=== PATIENT | female | born 1975 | race Caucasian/White ===

== ENCOUNTER 2020-01-09 07:34 | Emergency (ER) | payer BC, SELFPAY ==
[2020-01-09 07:36] VITALS: BP 113/112; PULSE 79; RESP 12; TEMP 37; O2SAT 97; BMI 38.7
--- NOTE | 2020-01-09 07:48 | HMH.EDMCLR ---
ED Disposition Clinical Impression: Hypertension Disposition: Home, Self-Care Condition on Discharge: Good Additional Instructions: Take meds as prescribed. Return if new symptoms. Referrals: Lb Bauer [Primary Care Provider] - - Critical Care Critical Care Time: No Attestation: On 01/09/20, the high probability of a clinically significant, sudden or life threatening deterioration of the following system(s) required my full and direct attention, intervention and personal management. The time I documented below is in addition to time spent performing reported procedures but includes the following listed in this critical care notation. Medical Decision Making - Medical Records Medical records reviewed: Yes: I reviewed the patient's medical records. - Eliud Inquiry Pt receiving controlled substance: No Vital Signs: 01/09/20 07:36 Temperature 98.6 F Temperature Source Oral Pulse Rate [Left Radial] 79 Respiratory Rate 12 Blood Pressure [Right Arm] 113/112 H Blood Pressure Mean [Right Arm] 112 Blood Pressure Source [Right Arm] Automatic Cuff Blood Pressure Position [Right Arm] Sitting 02 Sat by Pulse Oximetry 97 Oxygen Delivery Method Room Air Medical Decision Narrative: Patient presents with asymptomatic hypertension. Multiple readings in the emergency department around 150/70 mmHg. No diastolic blood pressure reading greater than 120 and again patient is asymptomatic. At this time, I did crisis counselor patient on the importance of keeping a blood pressure log and taking her valsartan as prescribed. My suspicion for any endorgan dysfunction based on patient's blood pressure reading and lack of symptoms is rather low so no indication for work-up here in the ER. Patient agrees. She is relieved that her blood pressure is better than when compared to yesterday. At this time, I did instruct her to immediately return if any chest pain, shortness of breath, other concerns. Otherwise she will follow-up with her primary care doctor for further management of chronic hypertension. Assessment: Asymptomatic hypertension Disposition: Home with follow-up Medical Clearance HPI - General Stated complaint: bp high CC: high blood pressure Time Seen by Provider: 01/09/20 07:35 Mode of Arrival: Ambulatory - History of Present Illness HPI Narrative: Patient 44-year-old female on valsartan for high blood pressure presenting due to blood pressure complaint. Patient states yesterday she noticed her blood pressure was high about 170/100 mmHg. She denies specifically chest pain, shortness of breath, nausea/vomiting, changes in urination, headache. At one point she stated that her cheeks felt flushed but denies other symptoms. She has been taking her valsartan as prescribed. No other symptoms to report. Home medications: Home Medications Medication Instructions Recorded Confirmed Loratadine [Claritin 10mg 10 mg PO DAILY 04/25/19 04/25/19 Tablet] Valsartan [Valsartan 80mg 325 mg PO DAILY 04/25/19 04/25/19 Tablets] Previous Rx's Medication Instructions Recorded Albuterol Sulfate [Albuterol HFA 1 - 2 puffs IH Q4-6H PRN #1 inh 04/25/19 Inhaler] Azithromycin [Z-Eriberto 250mg Tab*] 250 mg PO UD DOSE PK #6 tab 04/25/19 Oseltamivir Phosphate [Tamiflu 75 mg PO BID #10 cap 04/25/19 75mg Capsule] methylPREDNISolone [Medrol] 4 mg PO DIRECTED 6 Days #21 04/25/19 tab.ds.pk Allergies/Adverse reactions: Allergies Allergy/AdvReac Type Severity Reaction Status Date / Time No Known Allergies Allergy Verified 07/22/18 14:02 [facility] History - Hepatitis A Screen Attestation statement:: This patient has been screened for Hepatitis A risk factors. Medical History: Denies:: Cancer, Diabetes Mellitus Type 1, Diabetes Mellitus Type 2, MRSA Other Surgeries: Yes: Cholecystectomy, , Other Amputation: No - Social History Smoking Status: Never smoker Alcohol Intake: never Al
[2020-01-09 08:06] VITALS: BP 137/85; PULSE 70; RESP 19; TEMP 37
== END 2020-01-09 08:16 | disposition home or self-care (01) ==
PROVIDERS: Emergency Provider Emergency Medicine; PCP Pediatrics
DX: I16.0 Hypertensive urgency; Z79.899 Other long term (current) drug therapy; H53.8 Other visual disturbances; R51 Headache; Z90.79 Acquired absence of other genital organ(s)
CPT/HCPCS: 99281

== ENCOUNTER 2020-12-27 09:57 | Emergency (ER) | payer BC, SELFPAY ==
[2020-12-27 09:57] VITALS: BP 149/92; PULSE 89; RESP 14; TEMP 37.1; O2SAT 99; BMI 33.7
--- NOTE | 2020-12-27 10:51 | HMH.EDUTC ---
[facility] – [place] Disposition Clinical Impression: Strep throat Disposition: Home, Self-Care Condition on Discharge: Good Instructions: DI for Pharyngitis/Tonsillopharyngitis -- Adult, Preventing the Spread of Coronavirus Discharge Instructions Additional Instructions: Drink plenty of fluids. Take tylenol or ibuprofen for pain or fever. Take the medications as directed. Follow up with your regular doctor. GO TO THE ER FOR ANY WORSENING SYMPTOMS Throw your tooth brush away and get a new one. Quarantine until you know the results of your covid-19 test. If it is positive, the health department should call you and give you further instructions about your length of Quarantine and other thing. Prescriptions: Amoxicillin [Amoxicillin 500mg Tab] 500 mg PO TID 10 Days #30 tab Transmission Status: Received by [facility] #[id number] predniSONE [Deltasone 10mg tablet] 10 mg PO BID 3 Days #6 tab Transmission Status: Received by [facility] #[id number] Fluconazole [Diflucan 150mg tab] 150 mg PO ONCE #1 tab Transmission Status: Received by [facility] #[id number] Referrals: Lb Bauer [Primary Care Provider] - Time of Disposition: 10:54 Medical Decision Making - Medical Records Medical records reviewed: No: I reviewed the patient's medical records. - Eliud Inquiry Pt receiving controlled substance: No Vital Signs: 12/27/20 09:57 12/27/20 10:57 Temperature 98.7 F 98.7 F Temperature Source Oral Oral Pulse Rate 89 Pulse Rate [Right] 89 Respiratory Rate 14 14 Blood Pressure 149/92 H Blood Pressure [Right Arm] 149/92 H Blood Pressure Mean [Right Arm] 111 02 Sat by Pulse Oximetry 99 - Lab Data Lab results reviewed: Yes: I reviewed the patient's lab results. [facility] [place] HPI - General Stated complaint: sore throat Time Seen by Provider: 12/27/20 10:51 Description of Symptoms (Recalled from Triage Doc. by RN): pt c/o sore throat and request covid test HEENT Symptoms (Recalled from RN notes): Yes Resp Symptoms (Recalled from RN notes): No Skin Symptoms (Recalled from RN notes): No MS Symptoms (Recalled from RN notes): No Functional Status (Recalled from RN notes): na - History of Present Illness Provider Complaint: She c/o sore throat and feeling kind of bad for the past 2 days. She has a history of getting strep throat every so often. She states that she feels like she has strep throat now. She has been vaccinated agaist covid. She denies any known covid exposure. - Related Data Home Medications Medication Instructions Recorded Confirmed Loratadine [Claritin 10mg 10 mg PO DAILY 04/25/19 04/25/19 Tablet] Valsartan [Valsartan 80mg 325 mg PO DAILY 04/25/19 04/25/19 Tablets] Previous Rx's Medication Instructions Recorded Albuterol Sulfate [Albuterol HFA 1 - 2 puffs IH Q4-6H PRN #1 inh 04/25/19 Inhaler] Azithromycin [Z-Eriberto 250mg Tab*] 250 mg PO UD DOSE PK #6 tab 04/25/19 Oseltamivir Phosphate [Tamiflu 75 mg PO BID #10 cap 04/25/19 75mg Capsule] methylPREDNISolone [Medrol] 4 mg PO DIRECTED 6 Days #21 04/25/19 tab.ds.pk Amoxicillin [Amoxicillin 500mg Tab] 500 mg PO TID 10 Days #30 tab 12/27/20 Fluconazole [Diflucan 150mg tab] 150 mg PO ONCE #1 tab 12/27/20 predniSONE [Deltasone 10mg tablet] 10 mg PO BID 3 Days #6 tab 12/27/20 Allergies Allergy/AdvReac Type Severity Reaction Status Date / Time No Known Allergies Allergy Verified 07/22/18 14:02 - Worker's Comp Is this a Worker's Comp case?: No H History - Hepatitis A Screen Drug use history?: No High risk sexual behaviors?: No History of sexually transmitted infection?: No Currently employed?: No Childcare worker?: No Do you have indoor plumbing?: Yes Do you have electricity?: Yes Attestation statement:: This patient has been screened for Hepatitis A risk factors. I have reviewed the patient's past medical history: Yes Medical History: Denies:: Cancer, Diabetes Mellitus Type 1, Diabetes Debora
[2020-12-27 10:57] VITALS: BP 149/92; PULSE 89; RESP 14; TEMP 37.1; O2SAT 99
== END 2020-12-27 11:00 | disposition home or self-care (01) ==
PROVIDERS: Emergency Provider Nurse Practitioner Family; PCP Pediatrics
DX: J02.0 Streptococcal pharyngitis (principal); Z20.822 Contact with and (suspected) exposure to COVID-19
CPT/HCPCS: 99202; G0463; U0003

== ENCOUNTER 2021-01-28 18:56 | Emergency (ER) | payer BC, SELFPAY ==
[2021-01-28 19:52] VITALS: BP 172/110; PULSE 66; RESP 18; TEMP 36.4; O2SAT 100; BMI 33.4
--- NOTE | 2021-01-28 20:41 | HMH.EDUTC ---
[facility] [place] Clinical Impression: Exposure to COVID-19 virus, Strep throat Disposition: Home, Self-Care Condition on Discharge: Good Instructions: DI for Strep Throat, DI for COVID-19 (Suspected or Confirmed ), Preventing the Spread of Coronavirus Discharge Instructions Additional Instructions: Drink plenty of fluids. Take tylenol or ibuprofen for pain or fever. Take the medications as directed. Follow up with your regular doctor. GO TO THE ER FOR ANY WORSENING SYMPTOMS Quarantine until you know the results of your covid-19 test. If it is positive, the health department should call you and give you further instructions about your length of Quarantine and other things. Notify your school or workplace of your results and follow their instructions regarding return to work/school. Prescriptions: Fluconazole [Diflucan 150mg tab] 150 mg PO ONCE #1 tab Transmission Status: Received by [facility] #[id number] Promethazine HCl [Phenergan 25mg tab] 25 mg PO Q6H PRN #15 tab PRN Reason: Nausea And Vomiting Transmission Status: Received by [facility] #[id number] Benzonatate [Tessalon Perle 100mg Cap] 100 mg PO TIDP PRN #30 cap PRN Reason: Cough Transmission Status: Received by [facility] #[id number] Azithromycin [Z-Eriberto 250mg Tab*] 250 mg PO UD DOSE PK #6 tab Transmission Status: Received by [facility] #[id number] Referrals: Lb Bauer [Primary Care Provider] - Time of Disposition: 20:45 Medical Decision Making - Medical Records Medical records reviewed: No: I reviewed the patient's medical records. - Eliud Inquiry Pt receiving controlled substance: No Vital Signs: 01/28/21 19:52 01/28/21 20:59 Temperature 97.5 F L 98.2 F Temperature Source Oral Oral Pulse Rate 64 Pulse Rate [Apical] 66 Respiratory Rate 18 16 Blood Pressure 135/73 Blood Pressure [Right Arm] 172/110 H Blood Pressure Mean [Right Arm] 130 Blood Pressure Source Automatic Cuff Blood Pressure Source [Right Arm] Automatic Cuff Blood Pressure Position Sitting Blood Pressure Position [Right Arm] Supine 02 Sat by Pulse Oximetry 100 Oxygen Delivery Method Room Air Room Air - Lab Data Lab Results 01/28/21 19:56: Strep Scn Rapid Clinic Positive A [facility] [place] HPI - General Stated complaint: covid test strep test Time Seen by Provider: 01/28/21 20:41 Mode of Arrival: Ambulatory Source of Information: Patient Limitations: No Limitations Description of Symptoms (Recalled from Triage Doc. by RN): throat pain, headaches HEENT Symptoms (Recalled from RN notes): Yes Resp Symptoms (Recalled from RN notes): No Skin Symptoms (Recalled from RN notes): No MS Symptoms (Recalled from RN notes): No Functional Status (Recalled from RN notes): na - History of Present Illness Provider Complaint: She c/o feeling bad for the past 4 days. She has been exposed to covid-19. She has been vaccinated against covid-19. She has also been exposed to strep throat (her daughter has it). - Related Data Home Medications Medication Instructions Recorded Confirmed Loratadine [Claritin 10mg 10 mg PO DAILY 04/25/19 04/25/19 Tablet] Valsartan [Valsartan 80mg 325 mg PO DAILY 04/25/19 04/25/19 Tablets] Previous Rx's Medication Instructions Recorded Albuterol Sulfate [Albuterol HFA 1 - 2 puffs IH Q4-6H PRN #1 inh 04/25/19 Inhaler] Azithromycin [Z-Eriberto 250mg Tab*] 250 mg PO UD DOSE PK #6 tab 04/25/19 Oseltamivir Phosphate [Tamiflu 75 mg PO BID #10 cap 04/25/19 75mg Capsule] methylPREDNISolone [Medrol] 4 mg PO DIRECTED 6 Days #21 04/25/19 tab.ds.pk Amoxicillin [Amoxicillin 500mg Tab] 500 mg PO TID 10 Days #30 tab 12/27/20 Fluconazole [Diflucan 150mg tab] 150 mg PO ONCE #1 tab 12/27/20 predniSONE [Deltasone 10mg tablet] 10 mg PO BID 3 Days #6 tab 12/27/20 Azithromycin [Z-Eriberto 250mg Tab*] 250 mg PO UD DOSE PK #6 tab 01/28/21 Benzonatate [Tessalon Perle 100mg 100 mg PO TIDP PRN #30 cap 01/28/21 Cap] Fluconazole
[2021-01-28 20:59] VITALS: BP 135/73; PULSE 64; RESP 16; TEMP 36.8; O2SAT 98
[2021-01-29 10:04] LABS: UTC Strep Screen (Rapid) Positive (Negative)
== END 2021-01-28 21:00 | disposition home or self-care (01) ==
PROVIDERS: Emergency Provider Nurse Practitioner Family; PCP Pediatrics
DX: J02.0 Streptococcal pharyngitis (principal); Z20.822 Contact with and (suspected) exposure to COVID-19
CPT/HCPCS: 87880; 99202; C9803; G0463; U0003; U0005

== ENCOUNTER 2021-03-27 11:58 | Emergency (ER) | payer BC, SELFPAY ==
[2021-03-27 12:20] VITALS: BP 156/97; PULSE 96; RESP 24; TEMP 37.6; O2SAT 100; BMI 33.5
[2021-03-27 12:33] LABS: UTC Strep Screen (Rapid) Negative (Negative)
--- NOTE | 2021-03-27 12:53 | HMH.EDUTC ---
[facility] [place] Clinical Impression: Upper respiratory infection Qualifiers: URI type: unspecified URI Qualified Code(s): J06.9 - Acute upper respiratory infection, unspecified Disposition: Home, Self-Care Condition on Discharge: Good Instructions: Sore Throat, DI for Nasal Congestion Additional Instructions: *Monitor Temp, Over the counter Motrin or Tylenol as directed/as needed Tylenol every 4 hours and Motrin every 6 hours (as long as your family doctor has told you that you can take it) for fever or pain. and straight to ER if unable to lower temp less than 101.0 after medication given *Warm salt water gargles may help to soothe the throat *Throat Lozenges *Warm fluids like tea with honey may help to soothe the throat *Sleep elevated *Humidifier/Vaporizer *Flonase 2 sprays in each nostril daily but be aware that it may take 2-3 days before you notice improvement *Bromfed may cause drowsiness. Know how it effects you (your child) before driving, caring for small child, or sending your child to school. Not other antihistamines/allergy Follow up IMMEDIATELY for new or worsening symptoms or no Noticeable improvement over the next 48-72 hours. 911 for difficulty breathing or swallowing You were tested for today for COVID19 your test result should be back in the next 24-48 hours, you may check your results on the [facility] my health portal if you have trouble logging on or viewing your results you may call You was given a handout with instructions for Self Quarantine and Self isolation for while you wait on test results and what to do if they are positive If you are positive the Health Dept will be contacting you also Make sure to take your Vitamins Vit. C Vit D and Zinc if you can take them Prescriptions: Brompheniramine/Pseudoephed/Dm [Bromfed Dm Cough Syrup] 5 - 10 ml PO Q46H PRN #200 ml PRN Reason: Cough Transmission Status: Pending to [facility] predniSONE [Prednisone 20mg Tab] 20 mg PO BID 5 Days #10 tab Transmission Status: Pending to [facility] Azithromycin [Z-Eriberto 250mg Tab] 250 mg PO DIRECTED #6 tab Transmission Status: Pending to [facility] Referrals: Provider,Referral, [Primary Care Provider] - As needed Forms: Work/School Release Time of Disposition: 13:01 Medical Decision Making - Eliud Inquiry Pt receiving controlled substance: No Eliud was queried for this patient: No Vital Signs: 03/27/21 12:20 Temperature 99.6 F Temperature Source Oral Pulse Rate [Right Brachial] 96 H Respiratory Rate 24 Blood Pressure [Right Arm] 156/97 H Blood Pressure Mean [Right Arm] 116 Blood Pressure Source [Right Arm] Automatic Cuff Blood Pressure Position [Right Arm] Sitting 02 Sat by Pulse Oximetry 100 Oxygen Delivery Method Room Air - Lab Data Lab results reviewed: Yes: I reviewed the patient's lab results. Lab Results 03/27/21 12:27: Strep Scn Rapid Clinic Negative Orders (Tests/Meds): ORDERS Category Date Time Status Covid-19 Nasal PCR ([facility]) Routine Lab 03/27/21 12:16 Received Strep Screen Confirmation Stat Micro 03/27/21 12:27 Received [facility] UTC HPI - General Stated complaint: covid exposure, covid symptoms Time Seen by Provider: 03/27/21 12:53 Mode of Arrival: Ambulatory Source of Information: Patient Limitations: No Limitations Description of Symptoms (Recalled from Triage Doc. by RN): PATIENT C/O COUGH, CONGESTION, AND BODY ACHES X 3 DAYS. 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
[2021-03-27 13:02] VITALS: BP 156/97; PULSE 96; RESP 24; TEMP 37.6; O2SAT 100
[2021-03-27 13:04] LABS: UTC Influenza A Antigen Negative (Negative); UTC Influenza B Antigen Negative (Negative)
== END 2021-03-27 13:05 | disposition home or self-care (01) ==
PROVIDERS: Emergency Provider Nurse Practitioner
DX: U07.1 COVID-19 (principal); J06.9 Acute upper respiratory infection, unspecified
CPT/HCPCS: 87804; 87880; 99202; C9803; G0463; U0003; U0005

== ENCOUNTER 2021-05-29 18:58 | Emergency (ER) | payer BC, SELFPAY ==
--- NOTE | 2021-05-29 21:34 | XR_ITS ---
PROCEDURE INFORMATION: Exam: XR Left Ankle Exam date and time: 05/29/2021 9:34 PM Age: 45 years old Clinical indication: Injury or trauma; Fall; Blunt trauma; Ankle; Left TECHNIQUE: Imaging protocol: XR Left ankle. Views: 3 or more views. COMPARISON: No relevant prior studies available. FINDINGS: Bones/joints: Flattening of the mid tarsal arch which may be positional. Calcaneal spur. No visualized acute fracture or dislocation Soft tissues: Normal. IMPRESSION: Chronic changes without definite acute process.
--- NOTE | 2021-05-29 21:34 | XR_ITS ---
PROCEDURE INFORMATION: Exam: XR Left Knee Exam date and time: 05/29/2021 9:34 PM Age: 45 years old Clinical indication: Injury or trauma; Fall; Blunt trauma; Knee; Left TECHNIQUE: Imaging protocol: XR Left knee. Views: 3 views. COMPARISON: CR XR ANKLE LT MIN 3V 05/29/2021 9:42 PM FINDINGS: Bones/joints: Mild degenerative changes. No acute fracture or dislocation. Soft tissues: Normal. IMPRESSION: No acute findings.
[2021-05-29 21:58] VITALS: BP 164/80; PULSE 74; RESP 18; TEMP 36.8; O2SAT 99; BMI 36.3
--- NOTE | 2021-05-29 22:19 | HMH.EDUTC ---
[facility] [place] Disposition Clinical Impression: Exposure to COVID-19 virus Knee contusion Qualifiers: Encounter type: initial encounter Laterality: left Qualified Code(s): S80.02XA - Contusion of left knee, initial encounter Ankle sprain Qualifiers: Encounter type: initial encounter Involved ligament of ankle: unspecified ligament Laterality: left Qualified Code(s): S93.402A - Sprain of unspecified ligament of left ankle, initial encounter Foot sprain Qualifiers: Encounter type: initial encounter Laterality: left Qualified Code(s): S93.602A - Unspecified sprain of left foot, initial encounter Disposition: Home, Self-Care Condition on Discharge: Good Instructions: DI for Knee Sprain, DI for Ankle Sprain, DI for Foot Sprain, DI for COVID-19 (Suspected or Confirmed ), Preventing the Spread of Coronavirus Discharge Instructions Additional Instructions: Rest the extremity, apply ice for 15 minutes as tolerated three or four times per day, Wear the kyle wrap for compression, Elevate the extremity as tolerated while you are resting. Take ibuprofen for pain. Follow up with Dr. Winston (orthopedics) or your orthopedic doctor of choice. Sometimes there can be fractures that don't show up well on the first set of x-rays. So, you should follow up if you continue to have symptoms. I put in a referral to Dr. Winston, but you could follow up with your ortho instead. Follow up with your regular doctor. GO TO THE ER FOR ANY WORSENING SYMPTOMS Referrals: Lb Bauer [Primary Care Provider] - Forms: Work/School Release Time of Disposition: 22:33 Medical Decision Making - Medical Records Medical records reviewed: No: I reviewed the patient's medical records. - Eliud Inquiry Pt receiving controlled substance: No Vital Signs: 05/29/21 21:58 05/29/21 22:53 Temperature 98.3 F 98.3 F Temperature Source Oral Pulse Rate 74 Pulse Rate [Left] 74 Respiratory Rate 18 18 Blood Pressure 164/80 H Blood Pressure [Right Arm] 164/80 H Blood Pressure Mean [Right Arm] 108 02 Sat by Pulse Oximetry 99 - Lab Data Lab results reviewed: Yes: I reviewed the patient's lab results. - Radiology Data #1 Image(s): Knee Image Reviewed: Yes I reviewed the patient's radiology image, Yes I have reviewed radiologist's interpretation Preliminary Findings: Normal/NAD, No Fracture Seen PROCEDURE INFORMATION: Exam: XR Left Knee Exam date and time: 05/29/2021 9:34 PM Age: 45 years old Clinical indication: Injury or trauma; Fall; Blunt trauma; Knee; Left TECHNIQUE: Imaging protocol: XR Left knee. Views: 3 views. COMPARISON: CR XR ANKLE LT MIN 3V 05/29/2021 9:42 PM FINDINGS: Bones/joints: Mild degenerative changes. No acute fracture or dislocation. Soft tissues: Normal. IMPRESSION: No acute findings. #2 Image(s): Foot/Toes Image Reviewed: Yes I reviewed the patient's radiology image, Yes I have reviewed radiologist's interpretation Preliminary Findings: Normal/NAD, No Fracture Seen PROCEDURE INFORMATION: Exam: XR Left Ankle Exam date and time: 05/29/2021 9:34 PM Age: 45 years old Clinical indication: Injury or trauma; Fall; Blunt trauma; Ankle; Left TECHNIQUE: Imaging protocol: XR Left ankle. Views: 3 or more views. COMPARISON: No relevant prior studies available. FINDINGS: Bones/joints: Flattening of the mid tarsal arch which may be positional. Calcaneal spur. No visualized acute fracture or dislocation Soft tissues: Normal. IMPRESSION: Chronic changes without definite acute process. [facility] [place] HPI - General Stated complaint: covid test/L isamar knee pain Time Seen by Provider: 05/29/21 22:19 Mode of Arrival: Ambulatory Source of Information: Patient Limitations: No Limitations Description of Symptoms (Recalled from Triage Doc. by RN): pt
[2021-05-29 22:53] VITALS: BP 164/80; PULSE 74; RESP 18; TEMP 36.8
== END 2021-05-29 23:00 | disposition home or self-care (01) ==
PROVIDERS: Emergency Provider Nurse Practitioner Family; PCP Pediatrics
DX: S80.02XA Contusion of left knee, initial encounter (principal); S93.402A Sprain of unspecified ligament of left ankle, initial encounter; S93.602A Unspecified sprain of left foot, initial encounter; Z20.822 Contact with and (suspected) exposure to COVID-19; W00.0XXA Fall on same level due to ice and snow, initial encounter; Y92.481 Parking lot as the place of occurrence of the external cause
CPT/HCPCS: 73562; 73610; 99202; C9803; G0463; U0003; U0005

== ENCOUNTER 2021-08-03 19:56 | Emergency (ER) | payer BC, SELFPAY ==
[2021-08-03 19:58] VITALS: BP 135/81; PULSE 96; RESP 17; TEMP 37.1; O2SAT 100; BMI 34.9
[2021-08-03 20:04] VITALS: BP 135/81; PULSE 96; O2SAT 100
--- NOTE | 2021-08-03 20:21 | CT_ITS ---
PROCEDURE INFORMATION: Exam: CT Abdomen And Pelvis With Contrast Exam date and time: 08/03/2021 8:51 PM Age: 45 years old Clinical indication: Abdominal pain; Generalized; Prior surgery; Surgery date: 6+ months; Surgery type: Gb c sections; Additional info: Vaginal bleeding and abdomen pain generalized TECHNIQUE: Imaging protocol: Computed tomography of the abdomen and pelvis with contrast. Radiation optimization: All CT scans at this facility use at least one of these dose optimization techniques: automated exposure control; mA and/or kV adjustment per patient size (includes targeted exams where dose is matched to clinical indication); or iterative reconstruction. Contrast material: ISOVUE; Contrast volume: 75 ml; Contrast route: IV; [facility] abdomen pelvis wo con 07/14/2018 2:14 PM FINDINGS: Liver: Normal. No mass. Gallbladder and bile ducts: Gallbladder is absent. Pancreas: Normal. No ductal dilation. Spleen: Borderline splenomegaly. Adrenal glands: Normal. No mass. Kidneys and ureters: Normal. No hydronephrosis. Stomach and bowel: Postsurgical changes of the stomach. Widespread small bowel wall thickening. Appendix: Unremarkable appendix. Intraperitoneal space: Unremarkable. No free air. No significant fluid collection. Vasculature: Unremarkable. No abdominal aortic aneurysm. Lymph nodes: Unremarkable. No enlarged lymph nodes. Urinary bladder: Mild urinary bladder wall thickening, favored to be related to low urine volume. Reproductive: Uterine fibroids. Left ovarian follicle is noted. Postsurgical changes of the fallopian tubes. Bones/joints: Unremarkable. No acute fracture. Soft tissues: Tiny fat containing umbilical hernia. There is a healed anterior abdominal wall incision. Other findings: Stigmata of old granulomatous disease. IMPRESSION: 1. Widespread small bowel wall thickening. Please exclude enteritis. 2. Mild urinary bladder wall thickening, favored to be related to low urine volume. Please exclude infection.
[2021-08-03 20:33] LABS: Basophils # 0.1 K/mm3 (0-0.2); Basophils % 1.7 % (0.1-2.0); Eosinophils # 0.2 K/mm3 (0.0-0.4); Hematocrit 30.8 % (37.0-47.0); Hemoglobin 9.4 g/dL (12.2-16.2); Lymphocytes # 2.4 K/mm3 (0.7-4.5); Mean Corpuscular HGB Conc 30.5 g/dL (31.8-35.4); Mean Corpuscular Hemoglobin 26.1 pg (27.0-31.2); Mean Corpuscular Volume 85.7 fl (81-99); Mean Platelet Volume 8.7 fl (7.4-10.4); Monocytes # 0.3 K/mm3 (0.1-1.0); Neutrophils # 2.7 K/mm3 (1.8-7.8); Neutrophils % 47.2 % (37.0-80.0); Platelet Count 232 K/mm3 (142-424); Red Cell Distribution Width 14.8 % (11.5-17.5); White Blood Count 5.6 K/mm3 (4.8-10.8)
[2021-08-03 20:39] LABS: Alanine Aminotransferase 25 U/L (12-78); Albumin Level 3.5 g/dl (3.5-5.0); Albumin/Globulin Ratio 1.5 (1.1-1.8); Alkaline Phosphatase 66 U/L (38-126); Anion Gap 9.3 mEq/L (5-15); Aspartate Amino Transferase 29 U/L (14-36); Bilirubin,Total 0.3 mg/dl (0.2-1.3); Blood Urea Nitrogen 11 mg/dl (7-17); Calcium 8.6 mg/dl (8.4-10.2); Carbon Dioxide 24 mmol/L (22.0-30.0); Chloride 110 mmol/L (98-107); Creatinine Clearance Estimated 143 mL/min (50-200); Estimated Glomerular Filt Rate 77 ml/min (>60); GFR (African American) 93 ML/MIN (>60); Globulin 2.3 g/dL (1.3-3.2); Glucose 115 mg/dl (74-100); HCG Qualitative, Serum Negative (Negative); Potassium 3.3 mmoL/L (3.5-5.1); Sodium 140 mmol/L (136-145); Total Protein,Serum 5.8 g/dl (6.3-8.2)
--- NOTE | 2021-08-03 20:44 | PC.NURSE ---
PT TO RADIOLOGY FOR CT
--- NOTE | 2021-08-03 20:45 | HMH.EDUROGF ---
ED Disposition Clinical Impression: DUB (dysfunctional uterine bleeding) Anemia Qualifiers: Anemia type: other cause Other causes of anemia: other cause, not classified Qualified Code(s): D64.89 - Other specified anemias Fibroid, uterine Qualifiers: Uterine leiomyoma location: unspecified location Qualified Code(s): D25.9 - Leiomyoma of uterus, unspecified Disposition: Home, Self-Care Condition on Discharge: Good Instructions: DI for Vaginal Bleeding Additional Instructions: use meds and call dynamite shooter thursday Prescriptions: Medroxyprogesterone Acetate [Provera] 10 mg PO DAILY #10 tab Transmission Status: Pending to [id number] Referrals: Lb Bauer [Primary Care Provider] - Luis Alvarez MD [Staff Physician] - - Critical Care Critical Care Time: No Attestation: On 08/03/21, the high probability of a clinically significant, sudden or life threatening deterioration of the following system(s) required my full and direct attention, intervention and personal management. The time I documented below is in addition to time spent performing reported procedures but includes the following listed in this critical care notation. Medical Decision Making - Medical Records Medical records reviewed: Yes: I reviewed the patient's medical records. - Eliud Inquiry Pt receiving controlled substance: No Vital Signs: 08/03/21 19:58 08/03/21 20:04 Temperature 98.8 F Temperature Source Oral Pulse Rate 96 H Pulse Rate [Left Radial] 96 H Respiratory Rate 17 Blood Pressure 135/81 Blood Pressure [Right Arm] 135/81 Blood Pressure Mean [Right Arm] 99 02 Sat by Pulse Oximetry 100 100 Oxygen Delivery Method Room Air Room Air - Lab Data Lab results reviewed: Yes: I reviewed the patient's lab results. Lab Results 08/03/21 20:13: WBC 5.6, RBC 3.60 L, Hgb 9.4 L, Hct 30.8 L, MCV 85.7, MCH 26.1 L, MCHC 30.5 L, RDW 14.8, Plt Count 232, MPV 8.7, Neut % (Auto) 47.2, Lymph % (Auto) 43.0, [place] % (Auto) 5.0, Eos % (Auto) 3.0, Baso % (Auto) 1.7, Neut # (Auto) 2.7, Lymph # (Auto) 2.4, [place] # (Auto) 0.3, Eos # (Auto) 0.2, Baso # (Auto) 0.1 08/03/21 20:13: Sodium 140, Potassium 3.3 L, Chloride 110 H, Carbon Dioxide 24, Anion Gap 9.3, BUN 11, Creatinine 0.80, Estimated Creat Clear 143, Estimated GFR 77, Est GFR ( Amer) 93, Glucose 115 H, Calcium 8.6, Total Bilirubin 0.3, AST 29, ALT 25, Alkaline Phosphatase 66, Total Protein 5.8 L, Albumin 3.5, Globulin 2.3, Albumin/Globulin Ratio 1.5 08/03/21 20:13: Serum HCG, Qual Negative Result diagrams: 08/03/21 20:13 08/03/21 20:13 Orders (Tests/Meds): ED MEDICATIONS Generic Name Dose Route Start Last Admin Trade Name Freq PRN Reason Stop Dose Admin Sodium Chloride 1,000 mls @ 999 mls/hr 08/03/21 20:30 08/03/21 20:36 Sod Chlor 0.9% 1000ml Bag IV 08/03/21 21:30 999 mls/hr .Q1H1M AMISH Administration Discontinued Medications Generic Name Dose Route Start Last Admin Trade Name Freq PRN Reason Stop Dose Admin Iopamidol 75 ml 08/03/21 21:01 08/03/21 21:02 Iopamidol-370 (76%);100ml Bottle IV 08/03/21 21:02 75 ml ONCE ONE Administration Sodium Chloride 10 ml 08/03/21 21:01 08/03/21 21:02 Sodium Chloride 0.9% 10ml Syr (Rad Only) IV 08/03/21 21:02 10 ml ONCE ONE Administration - CT Data CT Scan: Abdomen, Pelvis Time Received: 22:[address] Reviewed: Yes: I have viewed the radiologist's interpretation Preliminary Findings: Abnormal (see report ) - Physician Consults Physician Consulted: lizeth Reason -: Pt condition Medical Decision Narrative: has dub and prob source is fibroids and stable labs anbsd exam - will follow up with dynamite shooter Female Urogenital HPI - General Chief complaint: Urogenital-Female Stated complaint: abd pain and vag bleeding Time Seen by Provider: 08/03/21 20:10 Mode of Arrival: Ambulatory Source of Information: Patient, Medical Record Limitations: No Limitations Description of Symptoms (Recalled fro
--- NOTE | 2021-08-03 22:19 | PC.NURSE ---
ER speaking with dr stanley
[2021-08-03 22:44] VITALS: BP 143/77; PULSE 78; RESP 18; TEMP 36.7; O2SAT 99
== END 2021-08-03 22:49 | disposition home or self-care (01) ==
PROVIDERS: Emergency Provider Emergency Medicine; PCP Pediatrics
DX: N93.8 Other specified abnormal uterine and vaginal bleeding (principal); D25.9 Leiomyoma of uterus, unspecified; D64.89 Other specified anemias
CPT/HCPCS: 74177; 80053; 84703; 85025; 96365; 96375; 99284; Q9967

== ENCOUNTER → 2021-10-24 15:41 | Outpatient (CLI) | payer BC, SELFPAY ==
--- NOTE | 2021-10-24 15:41 | US_ITS ---
FINAL REPORT CLINICAL HISTORY: abnormal uterine bleeding FINDINGS: Transvaginal sonographic images of the pelvis were obtained. The uterus measures 6.8 x 6.5 x 4.1 cm. The endometrium measures 7 mm, which is within normal limits. There are 3.5 in 2.4 cm mass is in the uterine fundus consistent with uterine fibroids. The right ovary measures 2.9 cm in length and left ovary measures 3.2 cm in length. Normal blood flow seen to the ovaries. Small follicles are present. There is no evidence of free fluid. IMPRESSION: Uterine fibroids. Reviewed, Interpreted and Dictated by Mason Villeda III, MD Transcribed by Andrae Chicas Authenticated and [facility]
--- NOTE | 2021-10-24 15:41 | MM_ITS ---
PROCEDURE INFORMATION: Exam: MG Bilateral Screening 3D Mammography Exam date and time: 10/24/2021 4:00 PM Age: 46 years old Clinical indication: Screening examination TECHNIQUE: Imaging protocol: Bilateral Screening tomosynthesis and 2D mammography including computer-aided detection (CAD) when performed. COMPARISON: MG MM MAMMO DIGITAL SCREENING W CAD BILAT 11/23/2018 2:06 PM FINDINGS: MAMMOGRAPHY: Breast composition: There are scattered areas of fibroglandular density. Mass: None. Architectural distortion: None. Calcifications: No suspicious calcifications. Asymmetric density: None. Skin thickening: None. Axillary adenopathy: None. IMPRESSION: No mammographic evidence of malignancy. Annual screening is recommended unless otherwise clinically indicated. ASSESSMENT: BI-RADS Category 1: Negative
[2021-10-24 18:11] LABS: Free T4 (Free Thyroxine) 0.87 ng/dl (0.78-2.19)
== END ==
PROVIDERS: PCP Pediatrics; Visit Provider Obstetrics & Gynecology
DX: Z12.31 Encounter for screening mammogram for malignant neoplasm of breast (principal); N93.9 Abnormal uterine and vaginal bleeding, unspecified; Z01.419 Encounter for gynecological examination (general) (routine) without abnormal findings; R53.82 Chronic fatigue, unspecified
CPT/HCPCS: 36415; 76830; 77063; 77067; 84439; 84443

== ENCOUNTER → 2021-11-18 13:09 | Outpatient (CLI) | payer BC, SELFPAY ==
[2021-11-18 14:06] LABS: Basophils # 0.1 K/mm3 (0-0.2); Basophils % 0.9 % (0.1-2.0); Eosinophils # 0.1 K/mm3 (0.0-0.4); Eosinophils % 1.8 % (0.1-12.0); Hematocrit 34.4 % (37.0-47.0); Hemoglobin 10.4 g/dL (12.2-16.2); Lymphocytes # 1.9 K/mm3 (0.7-4.5); Lymphocytes % 37.8 % (10-50); Mean Corpuscular HGB Conc 30.2 g/dL (31.8-35.4); Mean Corpuscular Hemoglobin 20.8 pg (27.0-31.2); Mean Corpuscular Volume 68.7 fl (81-99); Mean Platelet Volume 7.2 fl (7.4-10.4); Monocytes # 0.3 K/mm3 (0.1-1.0); Monocytes % 6.5 % (1.7-9.3); Neutrophils # 2.7 K/mm3 (1.8-7.8); Platelet Count 201 K/mm3 (142-424); Red Blood Count 5.01 M/mm3 (4.20-5.40); Red Cell Distribution Width 16.1 % (11.5-17.5); White Blood Count 5.1 K/mm3 (4.8-10.8)
== END ==
PROVIDERS: PCP Pediatrics; Visit Provider Obstetrics & Gynecology
DX: N92.0 Excessive and frequent menstruation with regular cycle (principal); Z01.812 Encounter for preprocedural laboratory examination; Z20.822 Contact with and (suspected) exposure to COVID-19
CPT/HCPCS: 36415; 85025; C9803; U0003; U0005

== ENCOUNTER 2021-11-20 06:39 | Day surgery (SDC) | payer BC, SELFPAY ==
[2021-11-20] VITALS (9 sets, daily range): BP systolic 141–168; BP diastolic 67–93; PULSE 73–92; RESP 12–18; TEMP 36.6–37; O2SAT 93–99; BMI 34.2
[2021-11-20 06:55] LABS: Urine Pregnancy, HCG Qual. Negative (Negative)
--- NOTE | 2021-11-20 08:31 | HMH.OPNOTE ---
Date of procedure: 11/20/21 Pre-op Diagnosis:: 1. Abnormal uterine bleeding 2. Fibroid, uterine 3. Dysmenorrhea 4. Menorrhagia with irregular cycle 5. Hypertension, unspecified type 6. Vulvar lesion Post-op Diagnosis:: 1. Abnormal uterine bleeding 2. Fibroid, uterine 3. Dysmenorrhea 4. Menorrhagia with irregular cycle 5. Hypertension, unspecified type 6. Vulvar lesion Procedure performed:: 1. Hysteroscopy, Dilation and Myosure curettage 2. Novasure endometrial ablation 3. Excision of vulvar lesion Surgeon:: Kate Singh DO Call Center Operations Manager(s):: N/a COP:: Other Anesthesia: GETA Estimated blood loss (mL): 1 Clinical Note:: Ms Jennifer Rosales is a 46 yo female, [id number], who presents for preop visit. She is scheduled for hysteroscopy, D&C, Endometrial ablation and removal of vulvar lesion. She complains of heavy and irregular periods. In July she bled for a month straight and had to change heavy pad and super tampon every 2 hours. She reports 3 episodes of severe cramping following the bleeding. She also reports passing clots. She went to the ED on 08/03 and was given Provera. Hgb at that time was 9.4. This stopped her bleeding and she hasn't bled since. She has been on Depo Provera in the past to help control irregular bleeding. She has history of Essure coils placed [address] scan in ED on 08/03 reported uterine fibroids. History of 3 c-sections. Pelvic ultrasound 10/24 demonstrated 3.5 in 2.4 cm mass is in the uterine fundus consistent with uterine fibroids . She also complains of skin colored lesion on outside of left labia majora. Operative findings:: On bimanual exam, uterus was midposition and of normal, size and shape. No adnexal masses palpated. On hysteroscopic exam, bilateral tubal ostia easily visualized. Some fluffy appearing endometrial tissue mixed with smooth tissue. A few powder burn appearing lesions noted on anterior uterine wall. Operative note:: Risks, benefits and alternatives were discussed with the patient. Risks include but are not limited to bleeding, infection, uterine perforation and VTE. Patient voiced understanding and agreed to proceed. She was wheeled back to the operating room and placed under general anesthesia without difficulty. She was placed in dorsal lithotomy position and prepped and draped in the normal sterile fashion. A bimanual exam was performed. A weighted Auvard was placed in the vaginal vault. Single tooth tenaculu was placed on anterior lip of the cervix. Uterus sounded to 8. Sequential Kemar dilators were used to dilate the cervical os. Hysteroscope was tested inserted through the cervix without difficulty. Endometrial cavity was evaluated. See findings above. Pictures were taken. Hysteroscope was removed. Medium size sharp curette was inserted through the cervix into the uterine cavity. Endometrial curettings will be sent to pathology for review. Novasure sure sound was used to obtain uterine length. Uterus measured 4 cm in length and 4.5 cm in cavity width. Novasure deviced was inserted and ablation was performed per protocol at a power of 99 w for 107 seconds. Novasure device was removed. Hysteroscope was reinserted and cavity revealed adequate burn and no uterine perforation. Hysteroscope was removed. Instruments were removed from the vagina. Tenaculum site was noted to be hemostatic. Straight catheter was used to drain the bladder. Skin underneath vulvar lesion was injected with 1% lidocaine with epinephrine. Lesion was grasped with Adson forceps and excised at the base with metzenbaum scissors. Specimen was handed off of sterile field and will be sent to pathology for review. Silver nitrate was applied to base of lesion. 3-0 Vicryl suture was used in an interrupted fashion to reapproximate skin at base of lesion. Hemostasis was noted. Patient was awaken from anesthesia without difficulty. She was transported to recovery room in stable condition. Patient will be disch
--- NOTE | 2021-11-20 09:10 | SUR.PHASEI ---
0904- detailed report given to sendy beyer in post op
--- NOTE | 2021-11-21 09:31 | P.PN_ITS ---
[facility] Anesthesia Record Part II Discharge Time: 09:08 Destination: Home PACU nurse assessment reviewed?: Yes Patient Condition:: Good Anesthesia Complications:: None Swallowing reflex intact?: Yes Cyanosis?: No Blood Pressure: 154/86 Pulse Rate: 70 Temperature: 98.0 F Mental Status: Alert & Oriented Pain level:: 0 Nausea and/or vomitting:: None Intake, IV Amount: 0
[2021-11-21 09:32] VITALS: BP 154/86; PULSE 70; TEMP 36.7
--- NOTE | 2021-11-21 09:32 | HMH.ANESI ---
[facility] Anesthesia Record Part I Intake, IV Amount: 700 Estimated blood loss (mL): 0 Urine output (mL): 0 Blood Pressure: 163/91 SaO2: 94 Pulse Rate: 92 Respiratory Rate: 12 Temperature: 97.0 F Patient is:: Drowsy Stable to PACU at:: 08:23
[2021-11-21 09:33] VITALS: BP 163/91; PULSE 92; RESP 12; TEMP 36.1; O2SAT 94
== END 2021-11-20 09:51 | disposition home or self-care (01) ==
LOC: OR 06:41
PROVIDERS: PCP Pediatrics; Visit Provider Obstetrics & Gynecology
PROC: (CPT 58558; principal; 2021-11-20 07:30)
DX: N93.9 Abnormal uterine and vaginal bleeding, unspecified (principal); D25.9 Leiomyoma of uterus, unspecified; N94.6 Dysmenorrhea, unspecified; N92.6 Irregular menstruation, unspecified; N90.89 Other specified noninflammatory disorders of vulva and perineum; I10 Essential (primary) hypertension
CPT/HCPCS: 58558; 58563; 11421; 81025; J2405

== ENCOUNTER 2022-03-13 13:57 | Emergency (ER) | payer BC, SELFPAY ==
[2022-03-13 14:30] VITALS: BP 145/76; PULSE 77; RESP 20; TEMP 36.7; O2SAT 98; BMI 35.2
--- NOTE | 2022-03-13 15:24 | EXP.UTC ---
Discharge Plan Disposition Patient Disposition: Home, Self-Care Condition: Good Prescriptions Prescriptions: No Action gabapentin 300 mg capsule 300 mg PO HS Qty: 30 2RF ibuprofen 800 MG tablet 800 mg PO Q8HP PRN (Reason: Moderate Pain) Qty: 20 0RF hydrocodone-acetaminophen 1 TAB tablet 1 tab PO Q8HP PRN (Reason: Moderate To Severe Pain) 2 Days Qty: 6 0RF Referrals Follow up/Referrals: bL Bauer [Primary Care Provider] - See instructions Activity Restrictions/Add. Instructions Additional Instructions/Restrictions: *Monitor Temp, Over the counter Motrin or Tylenol as directed/as needed Tylenol every 4 hours and Motrin every 6 hours (as long as your family doctor has told you that you can take it) for fever or pain. and straight to ER if unable to lower temp less than 101.0 after medication given *Warm salt water gargles may help to soothe the throat *Throat Lozenges? *Warm fluids like tea with honey may help to soothe the throat? *Sleep elevated *Humidifier/Vaporizer Your throat swab was sent for culture. Those results are typically sent to your primary care. Be sure to follow up in 2-3 days with your family doctor/primary care physician if no improvement so they can review those result and treat if necessary. If you don?t have a primary care doctor, I recommend you get one but in the mean time, you will have to return to a walk in clinic Follow up IMMEDIATELY for new or worsening symptoms or no Noticeable improvement over the next 48-72 hours. 911 for difficulty breathing or swallowing You were tested for today for COVID19 your test result should be back in the next 24-48 hours, you may check your results on the [facility] Info Health Portal Clinical Impressions Clinical Impression: Viral upper respiratory infection Stand Alone Forms Stand Alone Forms: Work/School Release Instructions Patient Instructions: DI for Headache, DI for Nasal Congestion Discharge ED Provider: Amalia Way [facility] [place] HPI General Stated complaint: TRACY, chills, cough Time Seen by Provider: 03/13/22 15:24 History of Present Illness Provider Complaint: Patient states that she recently traveled to [place] States that she has been having body aches, chills, cough and headache States that she was worried she may have the flu or COVID and wanted to come in and get checked and tested States had pain in both big toes in [place] but that is better and doesnt want seen for that today Related Data Previous Rx's Medication Instructions Recorded hydrocodone 5 mg-acetaminophen 325 1 tab PO Q8HP PRN Moderate To 11/20/21 mg tablet Severe Pain 2 days #6 tabs ibuprofen 800 mg tablet 800 mg PO Q8HP PRN Moderate Pain 11/20/21 #20 tabs gabapentin 300 mg capsule 300 mg PO HS #30 caps 12/30/21 Allergies Allergy/AdvReac Type Severity Reaction Status Date / Time chlorahexadine Allergy Uncoded 12/04/21 10:26 PFSH PFS Medical History (Updated 03/13/22 @ 15:33 by Eileen Green, RN) No significant past medical history Social History (Updated 03/13/22 @ 15:33 by Eileen Green RN) Smoking Status: Never smoker alcohol intake: current current occupational status: employed Travel in the last 8 weeks: None ROS Obtained: Yes All systems reviewed & no additional complaints except as documented and Yes Systems reviewed as appropriate & no additional complaints except as documented Constitutional Constitutional: Reports system reviewed and no additional complaints, except as documented, Reports as per HPI, Reports body ache, Reports chills, Reports fatigue and Reports headache(s) ENT Ears, Nose, Mouth, and Throat: Reports system reviewed and no additional complaints, except as documented, Reports as per HPI, Reports headache(s), Reports nasal congestion and Reports nasal discharge Neurologic Neurologic: Reports headache(s) Endocrine Endocrine: Reports fatigue Physical Exam General General chad
[2022-03-13 15:26] LABS: UTC Influenza A Antigen Negative (Negative); UTC Influenza B Antigen Negative (Negative); UTC Strep Screen (Rapid) Negative (Negative)
[2022-03-13 15:53] VITALS: BP 145/76; PULSE 77; RESP 20; TEMP 36.7; O2SAT 98
[2022-03-13 16:04] LABS: Adenovirus,PCR Not Detected (NotDetected); Bordetella Pertussis Not Detected (NotDetected); Chlamydophila Pneumoniae, PCR Not Detected (NotDetected); Coronavirus 19, PCR Not Detected (NotDetected); Coronavirus 229E Not Detected (NotDetected); Coronavirus NL63 Not Detected (NotDetected); Coronavirus OC43 Not Detected (NotDetected); Coronovirus HKU1,PCR Not Detected (NotDetected); Human Metapneumovirus Not Detected (NotDetected); Influenza A, PCR Not Detected (NotDetected); Influenza AH1, 2009 Not Detected (NotDetected); Influenza AH1, PCR Not Detected (NotDetected); Influenza AH3,PCR Not Detected (NotDetected); Influenza B, PCR Not Detected (NotDetected); Mycoplasma Pneumoniae, PCR Not Detected (NotDetected); Parainfluenza 1, PCR Not Detected (NotDetected); Parainfluenza 2, PCR Not Detected (NotDetected); Parainfluenza 3, PCR Not Detected (NotDetected); Parainfluenza 4, PCR Not Detected (NotDetected); Respiratory Syncytial Virus Not Detected (NotDetected); Rhinovirus/Enterovirus Not Detected (NotDetected)
== END 2022-03-13 15:55 | disposition home or self-care (01) ==
PROVIDERS: Emergency Provider Nurse Practitioner; PCP Pediatrics
DX: J06.9 Acute upper respiratory infection, unspecified (principal)
CPT/HCPCS: 87581; 87632; 87798; 87804; 87880; 99212; C9803; G0463; U0003; U0005

== ENCOUNTER 2022-05-21 19:04 | Emergency (ER) | payer BC, SELFPAY ==
[2022-05-21 19:10] VITALS: BP 138/90; PULSE 77; RESP 17; TEMP 37.1; O2SAT 98; BMI 35.1
--- NOTE | 2022-05-21 19:42 | EXP.UTC ---
Discharge Plan Disposition Patient Disposition: Home, Self-Care Condition: Good Referrals Follow up/Referrals: Lb Bauer [Primary Care Provider] - See instructions Activity Restrictions/Add. Instructions Additional Instructions/Restrictions: Make sure to keep blood pressure log and if you see your blood pressure starting to increase follow up with your Family Doctor Return if needed Straight to ER if any life threatening symptoms Clinical Impressions Clinical Impression: Blood pressure check Instructions Patient Instructions: Blood Pressure Testing and Measurement, DI for High Blood Pressure, DASH Diet For a Healthy Blood Pressure Discharge ED Provider: Amalia Way [facility] [place] HPI General Stated complaint: needs bp checked Mode of Arrival: Ambulatory Source of Information: Patient Limitations: No Limitations Time Seen by Provider: 05/21/22 19:42 Description of Symptoms (Recalled from Triage Doc. by RN): wants BP checked HEENT Symptoms (Recalled from RN notes): No Resp Symptoms (Recalled from RN notes): No Skin Symptoms (Recalled from RN notes): No MS Symptoms (Recalled from RN notes): No Functional Status (Recalled from RN notes): n/a History of Present Illness Provider Complaint: Patient states that she use to be on Medication for HTN and she lost weight and got to stop it States that last week she seen Chiropractor and her blood pressure was up but when she seen her PCP it was normal States that today she was bringing her daughter in and wanted to get it checked to see what it is showing now Denies any symptoms Related Data Allergies Allergy/AdvReac Type Severity Reaction Status Date / Time chlorahexadine Allergy Intermediate Uncoded 05/21/22 19:39 Worker's Comp Is this a Worker's Comp case?: No [facility] Disclaimer: The information contained in this section may have been updated after the patient was seen, as this information can be updated by other users. Medical History (Updated 05/21/22 @ 19:[address] [employer]) No significant past medical history Social History (Updated 03/13/22 @ 15:33 by Eileen Green RN) Smoking Status: Never smoker alcohol intake: current current occupational status: employed Travel in the last 8 weeks: None ROS Obtained: Yes All systems reviewed & no additional complaints except as documented and Yes Systems reviewed as appropriate & no additional complaints except as documented Constitutional Constitutional: Reports system reviewed and no additional complaints, except as documented, Reports as per HPI, Denies fever(s) and Denies headache(s) Eyes Eyes: Reports system reviewed and no additional complaints, except as documented, Reports as per HPI, Denies blurry vision and Denies loss of vision ENT Ears, Nose, Mouth, and Throat: Reports system reviewed and no additional complaints, except as documented, Reports as per HPI and Denies headache(s) Cardiovascular Cardiovascular: Reports system reviewed and no additional complaints, except as documented and Reports as per HPI Respiratory Respiratory: Reports system reviewed and no additional complaints, except as documented and Reports as per HPI Gastrointestinal Gastrointestingal: Reports system reviewed and no additional complaints, except as documented and as per HPI Genitourinary Female Genitourinary: Reports system reviewed and no additional complaints, except as documented and Reports as per HPI Neurologic Neurologic: Reports system reviewed and no additional complaints, except as documented, Reports as per HPI, Denies headache(s) and Denies loss of vision Physical Exam General General appearance: alert and in no apparent distress Eye Eye exam: Present normal appearance, PERRL and EOMI Respiratory Respiratory exam: Present normal lung sounds bilaterally; Absent respiratory distress or wheezes Cardiovascular Cardiovascular exam: Present regular rate, normal rhythm and normal heart sounds Neurological Exam
[2022-05-21 20:00] VITALS: BP 125/71; PULSE 86; RESP 18; TEMP 37.1; O2SAT 98
== END 2022-05-21 20:00 | disposition home or self-care (01) ==
PROVIDERS: Emergency Provider Nurse Practitioner; PCP Pediatrics
DX: R03.0 Elevated blood-pressure reading, without diagnosis of hypertension (principal)
CPT/HCPCS: 99212; G0463

== ENCOUNTER 2022-07-16 19:05 | Emergency (ER) | payer BC, SELFPAY ==
--- NOTE | 2022-07-16 19:24 | EXP.UTC ---
Discharge Plan Disposition Patient Disposition: Home, Self-Care Condition: Good Prescriptions Prescriptions: New amoxicillin [amoxicillin] 500 mg tablet 500 mg PO TID 10 Days Qty: 30 0RF benzonatate [benzonatate] 100 mg capsule 100 mg PO TIDP PRN (Reason: Cough) Qty: 30 0RF methylprednisolone 4 mg Tablets,Dose Pack 4 mg PO DIRECTED Qty: 21 0RF Referrals Follow up/Referrals: Lb Bauer [Primary Care Provider] - See instructions Activity Restrictions/Add. Instructions Additional Instructions/Restrictions: Drink plenty of fluids. Take tylenol or ibuprofen for pain or fever. Take the medications as directed. Follow up with your regular doctor. GO TO THE ER FOR ANY WORSENING SYMPTOMS Clinical Impressions Clinical Impression: Pharyngitis Stand Alone Forms Stand Alone Forms: Work/School Release Instructions Patient Instructions: Strep Throat, DI for Strep Throat Discharge ED Provider: Jez Gray [facility] [place] HPI General Stated complaint: sore throat, exposed to strep Time Seen by Provider: 07/16/22 19:24 History of Present Illness Provider Complaint: She states that for the past 2 days she has had a worsening sore throat, malaise, sinus drainage and ear pain. Related Data Previous Rx's Medication Instructions Recorded amoxicillin 500 mg tablet 500 mg PO TID 10 days #30 tabs 07/16/22 benzonatate 100 mg capsule 100 mg PO TIDP PRN Cough #30 caps 07/16/22 methylprednisolone 4 mg tablets in 4 mg PO DIRECTED #21 tabs 07/16/22 a dose pack Allergies Allergy/AdvReac Type Severity Reaction Status Date / Time chlorahexadine Allergy Intermediate Uncoded 05/21/22 19:39 [facility] Disclaimer: The information contained in this section may have been updated after the patient was seen, as this information can be updated by other users. Medical History No significant past medical history Social History Smoking Status: Never smoker alcohol intake: current current occupational status: employed Travel in the last 8 weeks: None ROS Obtained: Yes All systems reviewed & no additional complaints except as documented Constitutional Constitutional: Reports chills and Reports fever(s) Eyes Eyes: Denies eye discharge ENT Ears, Nose, Mouth, and Throat: Reports as per HPI Cardiovascular Cardiovascular: Denies chest pain Respiratory Respiratory: Denies chest congestion and Reports cough Gastrointestinal Gastrointestingal: Reports nausea; Denies abdominal pain, constipation, cramping, diarrhea or vomiting Musculoskeletal Musculoskeletal: Denies arthralgias Integumentary/Breasts Skin/Breast: Denies rash Neurologic Neurologic: Denies paresthesias Physical Exam General General appearance: alert and in no apparent distress Head Head exam: atraumatic, normocephalic and normal inspection Eye Eye exam: Present normal appearance, PERRL and EOMI ENT ENT exam: Present mucous membranes moist and normal external ear exam Expanded ENT Exam TM/Canal exam: Bilateral TM: erythema and bulging Nose exam: Absent sinus tenderness Mouth exam: Present normal external inspection; Absent drooling Teeth exam: Present normal inspection Throat exam: Present tonsillar erythema, tonsillomegaly and tonsillar exudate Neck Neck exam: Present normal inspection, full ROM and trachea midline; Absent tenderness, meningismus or lymphadenopathy Chest Chest inspection: Present normal inspection and symmetric chest wall rise; Absent tenderness Respiratory Respiratory exam: Present normal lung sounds bilaterally; Absent respiratory distress, wheezes or stridor Cardiovascular Cardiovascular exam: Present regular rate and normal rhythm; Absent systolic murmur or diastolic murmur Abdominal Exam Abdominal exam: Present soft and normal bowel sounds; Absent distention, tenderness, guarding, rebound or rigidity
[2022-07-16 19:25] VITALS: BP 150/89; PULSE 58; RESP 19; TEMP 36.9; O2SAT 100; BMI 34.0
[2022-07-16 19:43] LABS: UTC Strep Screen (Rapid) Negative (Negative)
[2022-07-16 19:44] LABS: UTC Influenza A Antigen Negative (Negative); UTC Influenza B Antigen Negative (Negative)
[2022-07-16 19:48] VITALS: BP 150/89; PULSE 58; RESP 19; TEMP 36.9; O2SAT 100
== END 2022-07-16 20:27 | disposition home or self-care (01) ==
PROVIDERS: Emergency Provider Nurse Practitioner Family; PCP Pediatrics
DX: J02.9 Acute pharyngitis, unspecified (principal); R53.81 Other malaise; H92.03 Otalgia, bilateral; R11.0 Nausea; R50.9 Fever, unspecified; I10 Essential (primary) hypertension; Z20.822 Contact with and (suspected) exposure to COVID-19
CPT/HCPCS: 87804; 87880; 99212; 99214; C9803; G0463; U0003; U0005

== ENCOUNTER 2023-08-10 10:18 | Outpatient (CLI) | payer BC, SELFPAY ==
--- NOTE | 2023-08-10 10:19 | MM_ITS ---
PROCEDURE INFORMATION: Exam: MG Bilateral Screening 3D Mammography Exam date and time: 08/10/2023 10:10 AM Age: 47 years old Clinical indication: Screening examination TECHNIQUE: Imaging protocol: Bilateral Screening tomosynthesis and 2D mammography including computer-aided detection (CAD) when performed. COMPARISON: 1. MG MM DIG SCREENING MAMM BI W/CAD 10/24/2021 4:00 PM 2. MG MM MAMMO DIGITAL SCREENING W CAD BILAT 11/23/2018 2:06 PM FINDINGS: MAMMOGRAPHY: Breast composition: There are scattered areas of fibroglandular density. Mass: None. Architectural distortion: None. Calcifications: No suspicious calcifications. Asymmetric density: None. Skin thickening: None. Axillary adenopathy: None. IMPRESSION: No mammographic evidence of malignancy. Annual screening is recommended unless otherwise clinically indicated. ASSESSMENT: BI-RADS Category 1: Negative
== END 2023-08-10 23:59 | disposition home or self-care (01) ==
LOC: RAD 10:19
PROVIDERS: PCP Pediatrics; Visit Provider Obstetrics & Gynecology
DX: Z12.31 Encounter for screening mammogram for malignant neoplasm of breast (principal)
CPT/HCPCS: 77063; 77067

== ENCOUNTER 2023-11-22 11:54 | Emergency (ER) | payer BC, SELFPAY ==
[2023-11-22 12:14] VITALS: BP 145/102; PULSE 72; RESP 18; TEMP 36.8; O2SAT 99; BMI 29.9
--- NOTE | 2023-11-22 12:21 | ED_ITS ---
Discharge Plan Disposition Patient Disposition: Home, Self-Care Condition: Good Prescriptions Prescriptions: New fluconazole 150 mg tablet 150 mg PO ONCE Qty: 1 3RF metronidazole 500 mg tablet 500 mg PO BID 7 Days Qty: 14 0RF No Action Ozempic 1 mg/dose (4 mg/3 mL) pen injector SQ Patient Comments: INJECT 1 MG UNDER THE SKIN ONCE A WEEK. doxepin 10 mg capsule 10 mg PO DAILY PRN Patient Comments: TAKE 1 CAPSULE BY MOUTH EVERY DAY AT NIGHT fluconazole 150 mg tablet 150 mg PO ONCE Qty: 1 0RF Rx Instructions: take after metronidazole is completed Climara Pro 0.045-0.015 mg/24 hr patch weekly 1 patch transdermal WEEKLY Qty: 4 5RF estradiol [Vagifem] 10 mcg tablet 10 mcg vaginal .twice weekly 28 Days Qty: 8 6RF metronidazole 500 mg tablet 500 mg PO BID 7 Days Qty: 14 0RF Referrals Follow up/Referrals: Lb Bauer [Primary Care Provider] - See instructions Activity Restrictions/Add. Instructions Additional Instructions/Restrictions: Drink plenty of fluids. Eat yogurt frequently for the next few weeks. Take tylenol or ibuprofen for fever. Take the medications as directed. Follow up with your regular doctor. GO TO THE ER FOR ANY WORSENING SYMPTOMS Clinical Impressions Clinical Impression: Bacterial vaginosis, Vaginal yeast infection Instructions Patient Instructions: DI for Vaginal Yeast Infection, DI for Bacterial Vaginosis, Metronidazole, Fluconazole Discharge ED Provider: Jez Gray [facility] General Stated complaint: vaginal irritation Time Seen by Provider: 11/22/23 12:18 History of Present Illness Provider Complaint: She states that she is having bacterial vaginosis symptoms for the past several days. She also thinks that she has a yeast infection. She refuses pelvic exam and any swabs today. Related Data Home Medications Medication Instructions Recorded Confirmed doxepin 10 mg capsule 10 mg PO DAILY PRN 08/10/23 08/10/23 semaglutide 1 mg/dose (4 mg/3 mL) mg SQ 08/10/23 08/10/23 subcutaneous pen injector (Ozempic) Previous Rx's Medication Instructions Recorded estradiol 0.045 mg-levonorgestrel 1 patch transdermal WEEKLY #4 ea 06/24/23 0.015 mg/24hr weekly transderm patch (Climara Pro) fluconazole 150 mg tablet 150 mg PO ONCE 1 dose #1 tab 08/12/23 estradiol 10 mcg vaginal tablet 10 mcg vaginal .twice weekly 28 09/23/23 (Vagifem) days #8 tabs metronidazole 500 mg tablet 500 mg PO BID 7 days #14 tabs 09/23/23 fluconazole 150 mg tablet 150 mg PO ONCE 1 dose #1 tab 11/22/23 metronidazole 500 mg tablet 500 mg PO BID 7 days #14 tabs 11/22/23 Allergies Allergy/AdvReac Type Severity Reaction Status Date / Time No Known Allergies Allergy Verified 08/10/23 11:03 [facility] Disclaimer: The information contained in this section may have been updated after the patient was seen, as this information can be updated by other users. Medical History Fatigue Oral dryness Vaginal dryness Perimenopausal vasomotor symptoms Menorrhagia Dysmenorrhea Fibroid, uterine Anemia Hypertension Surgical History History of endometrial ablation History of hysteroscopy History of D&C Family History Daughter Cancer Father Cancer Social History Smoking Status: Never smoker alcohol intake: current alcohol intake frequency: holidays/special occasions only current occupational status: employed Travel in the last 8 weeks: None ROS Obtained: Yes All systems reviewed & no additional complaints except as docu mented Constitutional Constitutional: Denies chills and Denies fever(s) Eyes Eyes: Denies eye discharge ENT Ears, Nose, Mouth, and Throat: Denies dizziness, Denies otalgia and Denies sore throat Cardiovascular Cardiovascular: Denies chest pain Respiratory Respiratory: Denies shortness of breath, Denies chest congestion, Denies cough, Denies stridor and Denies wheezing Gastrointestinal Gastrointestingal: Denies nausea or vomiting Genitourinary Female Genitourinary: Reports as per HPI Musculoskeletal Musculoskeletal: Reports system reviewed and no additional complaints, except as documented and Denies arthralgias Integumentary/Breasts Skin/Breast: Denies rash Neurologic Neurologic: Denies dizziness and Denies paresthesias Allergic/Immunologic Allergic/Immunologic: Denies wheezing Physical Exam General General appearance: alert and in no apparent distress Head Head exam: atraumatic, normocephalic and normal inspection Eye Eye exam: Present normal appearance, PERRL and EOMI ENT ENT exam: Present normal exam, normal oropharynx, mucous membranes moist, TM's normal bilaterally and normal external ear exam Neck Neck exam: Present normal inspection, full ROM and trachea midline; Absent meningismus or lymphadenopathy Chest Chest inspection: Present normal inspection and symmetric chest wall rise; Absent tenderness Respiratory Respiratory exam: Present normal lung sounds bilaterally; Absent respiratory distress Cardiovascular Cardiovascular exam: Present regular rate and normal rhythm; Absent JVD Abdominal Exam Abdominal exam: Present soft and normal bowel sounds; Absent distention, tenderness or guarding Extremities Exam Extremities exam: Present normal inspection, full ROM and normal capillary refill; Absent calf tenderness Back Exam Back exam: Present normal inspection; Absent tenderness Neurological Exam Neurological exam: Present alert and oriented X3 Psychiatric Psychiatric exam: Present normal affect and normal mood Skin Skin exam: Present warm, dry, intact and normal color Lymphatic Lymphatic Findings: no adenopathy Medical Decision Making Medical Records Medical records reviewed: No I reviewed the patient's medical records. Eliud Inquiry Pt receiving controlled substance: No
[2023-11-22 12:50] VITALS: BP 145/102; PULSE 72; RESP 18; TEMP 36.8; O2SAT 99
== END 2023-11-22 12:50 | disposition home or self-care (01) ==
PROVIDERS: Emergency Provider Nurse Practitioner Family; PCP Pediatrics
DX: B37.31 Acute candidiasis of vulva and vagina (principal); N76.0 Acute vaginitis
CPT/HCPCS: 99212; 99214; G0463

== ENCOUNTER 2024-06-08 13:30 | Emergency (ER) | payer BC, SELFPAY ==
[2024-06-08 13:44] VITALS: BP 156/94; PULSE 95; RESP 18; TEMP 36.8; O2SAT 98; BMI 27.0
--- NOTE | 2024-06-08 13:56 | EXP.UTC ---
Discharge Plan Disposition Patient Disposition: Home, Self-Care Condition: Good Prescriptions Prescriptions: New prednisone 10 mg tablet 10 mg PO BID 4 Days Qty: 8 0RF azithromycin [Zithromax] 250 mg tablet 250 mg PO UD DOSE PK Qty: 6 0RF Rx Instructions: Take two (2) tablets today, then one (1) tablet days #2 thru #5 benzonatate 100 mg capsule 100 mg PO TIDP PRN (Reason: Cough) Qty: 30 0RF No Action Ozempic 1 mg/dose (4 mg/3 mL) pen injector SQ Patient Comments: INJECT 1 MG UNDER THE SKIN ONCE A WEEK. doxepin 10 mg capsule 10 mg PO DAILY PRN Patient Comments: TAKE 1 CAPSULE BY MOUTH EVERY DAY AT NIGHT fluconazole 150 mg tablet 150 mg PO ONCE Qty: 1 0RF Rx Instructions: take after metronidazole is completed Climara Pro 0.045-0.015 mg/24 hr patch weekly 1 patch transdermal WEEKLY Qty: 4 5RF estradiol [Vagifem] 10 mcg tablet 10 mcg vaginal .twice weekly 28 Days Qty: 8 6RF metronidazole 500 mg tablet 500 mg PO BID 7 Days Qty: 14 0RF fluconazole 150 mg tablet 150 mg PO ONCE Qty: 1 3RF metronidazole 500 mg tablet 500 mg PO BID 7 Days Qty: 14 0RF buspirone 10 mg tablet 10 mg PO DAILY Patient Comments: TAKE 1/2 TO 1 TABLET BY MOUTH 3 TIMES DAILY NEEDED Referrals Follow up/Referrals: Lb Bauer [Primary Care Provider] - See instructions Activity Restrictions/Add. Instructions Additional Instructions/Restrictions: Drink plenty of fluids. Take tylenol or ibuprofen for pain or fever. Take the medications as directed. Follow up with your regular doctor. GO TO THE ER FOR ANY WORSENING SYMPTOMS Clinical Impressions Clinical Impression: Otitis media, Pharyngitis, Acute viral syndrome Stand Alone Forms Stand Alone Forms: Work/School Release Instructions Patient Instructions: Middle Ear Infection Print Language Print Language: Greenlandic Discharge ED Provider: Jez Gray [facility] [place] HPI General Stated complaint: fever ear/throat pain Mode of Arrival: Ambulatory Source of Information: Patient Time Seen by Provider: 06/08/24 13:56 Description of Symptoms (Recalled from Triage Doc. by RN): MIGRAINE, EAR PAIN, BA, THROAT PAIN, FATIGUE X 1 WEEK HEENT Symptoms (Recalled from RN notes): Yes Resp Symptoms (Recalled from RN notes): Yes Skin Symptoms (Recalled from RN notes): No MS Symptoms (Recalled from RN notes): No Functional Status (Recalled from RN notes): WNL Related Data Home Medications ?Medication ?Instructions ?Recorded ?Confirmed doxepin 10 mg capsule 10 mg PO DAILY PRN 08/10/23 08/10/23 semaglutide 1 mg/dose (4 mg/3 mL) mg SQ 08/10/23 08/10/23 subcutaneous pen injector (Ozempic) buspirone 10 mg tablet 10 mg PO DAILY 06/08/24 06/08/24 Previous Rx's ?Medication ?Instructions ?Recorded estradiol 0.045 mg-levonorgestrel 1 patch transdermal WEEKLY #4 ea 06/24/23 0.015 mg/24hr weekly transderm patch (Climara Pro) fluconazole 150 mg tablet 150 mg PO ONCE 1 dose #1 tab 08/12/23 estradiol 10 mcg vaginal tablet 10 mcg vaginal .twice weekly 28 09/23/23 (Vagifem) days #8 tabs metronidazole 500 mg tablet 500 mg PO BID 7 days #14 tabs 09/23/23 fluconazole 150 mg tablet 150 mg PO ONCE 1 dose #1 tab 11/22/23 metronidazole 500 mg tablet 500 mg PO BID 7 days #14 tabs 11/22/23 azithromycin 250 mg tablet 250 mg PO UD DOSE PK #6 tabs 06/08/24 (Zithromax) benzonatate 100 mg capsule 100 mg PO TIDP PRN Cough #30 caps 06/08/24 prednisone 10 mg tablet 10 mg PO BID 4 days #8 tabs 06/08/24 Allergies Allergy/AdvReac Type Severity Reaction Status Date / Time No Known Allergies Allergy Verified 08/10/23 11:03 Worker's Comp Is this a Worker's Comp case?: No [facility] Disclaimer: The information contained in this section may have been updated after the patient was seen, as this information can be updated by other users. Medical History Fatigue Oral dryness Vaginal dryness Perimenopausal vasomotor symptoms Menorrhagia Dysmenorrhea Fibroid, uterine Anemia Hypertension Surgical History History of endometrial ablation History of hysteroscopy History of D&C Family History Daughter Cancer Father Cancer Social History Smoking Status: Never smoker alcohol intake: current alcohol intake frequency: holidays/special occasions only current occupational status: employed Travel in the last 8 weeks: None Have you lived/traveled outside [place] in past 30 days?: No Contact w/someone who lives/traveled outside [place] past 30 days?: No Exposure to someone with infectious disease in past 14 days?: No Do you have a fever (greater than 100.4 F or 38 C)?: No Have you tested positive for COVID-19: No Exposed to someone with COVID-19 in past 14 days?: No Do you have a sore throat?: No Do you have a cough?: No Do you have any weakness?: No Do you have any diarrhea?: No Are you experiencing any unusual bleeding?: No Do you have any muscle aches/pain?: No Do you have any abdominal pain?: No Are you experiencing loss of taste or smell?: No ROS Obtained: Yes All systems reviewed & no additional complaints except as documented Constitutional Constitutional: Denies chills, Reports fever(s) and Reports poor appetite Eyes Eyes: Denies eye discharge ENT Ears, Nose, Mouth, and Throat: Denies ear discharge, Reports otalgia, Denies hearing loss, Denies sinus pain and Reports sore throat Cardiovascular Cardiovascular: Denies chest pain and Denies dyspnea Respiratory Respiratory: Denies chest congestion, Reports cough and Denies dyspnea Gastrointestinal Gastrointestingal: Denies abdominal pain, diarrhea, nausea or vomiting Musculoskeletal Musculoskeletal: Denies arthralgias Integumentary/Breasts Skin/Breast: Denies rash Physical Exam General General appearance: alert and in no apparent distress Head Head exam: atraumatic, normocephalic and normal inspection Eye Eye exam: Present normal appearance; Absent PERRL or EOMI ENT ENT exam: Present mucous membranes moist and normal external ear exam Expanded ENT Exam TM/Canal exam: Bilateral TM: erythema, bulging and effusion Nose exam: Absent sinus tenderness Nasal speculum exam: Bilateral: normal Mouth exam: Present normal external inspection and other; Absent drooling Teeth exam: Present normal inspection Throat exam: Present tonsillar erythema and tonsillomegaly Neck Neck exam: Present normal inspection, full ROM and trachea midline; Absent tenderness, meningismus or lymphadenopathy Chest Chest inspection: Present normal inspection and symmetric chest wall rise; Absent tenderness Respiratory Respiratory exam: Present normal lung sounds bilaterally; Absent respiratory distress, wheezes or stridor Cardiovascular Cardiovascular exam: Present regular rate, normal rhythm and normal heart sounds; Absent tachycardia or irregular rhythm Abdominal Exam Abdominal exam: Present soft and normal bowel sounds; Absent distention, tenderness, guarding, rebound or rigidity Extremities Exam Extremities exam: Present normal inspection and normal capillary refill; Absent tenderness, joint swelling or calf tenderness Back Exam Back exam: Present normal inspection and full ROM; Absent tenderness, CVA tenderness (R) or CVA tenderness (L) Neurological Exam Neurological exam: Present alert, oriented X3, CN II-XII intact, normal gait and reflexes normal; Absent motor sensory deficit Psychiatric Psychiatric exam: Present normal affect and normal mood Skin Skin exam: Present warm, dry, intact and normal color Lymphatic Lymphatic Findings: no adenopathy Medical Decision Making Medical Records Medical records reviewed: No I reviewed the patient's medical records. Screening: Per USPSTF and CDC recommendations, given the prevalence of disease in our region, it is our hospital?s policy to screen for HIV and viral Hepatitis for all patients aged 18 and over and those with ongoing risk factors. Eliud Inquiry Pt receiving controlled substance: No Vital Signs: 06/08/24 13:44 Temperature 98.3 F Temperature Source Oral Pulse Rate [Left Radial] 95 H Respiratory Rate 18 Blood Pressure [Left Arm] 156/94 H Blood Pressure Mean [Left Arm] 114 02 Sat by Pulse Oximetry 98 Lab Data Lab results reviewed: Yes I reviewed the patient's lab results.
[2024-06-08 14:00] LABS: UTC Influenza A Antigen Negative (Negative); UTC Influenza B Antigen Negative (Negative); UTC Strep Screen (Rapid) Negative (Negative)
[2024-06-08 14:49] VITALS: BP 156/94; PULSE 95; RESP 18; TEMP 36.8
[2024-06-08 15:00] LABS: Coronavirus 19, PCR Not Detected (NotDetected); Influenza A, PCR Not Detected (NotDetected); Influenza B, PCR Not Detected (NotDetected)
== END 2024-06-08 14:54 | disposition home or self-care (01) ==
PROVIDERS: Emergency Provider Nurse Practitioner Family; PCP Pediatrics
DX: H66.93 Otitis media, unspecified, bilateral (principal); J02.9 Acute pharyngitis, unspecified; B34.9 Viral infection, unspecified
CPT/HCPCS: 87636; 87804; 87880; 99213; G0381